=== PATIENT | male | born 1965 | race American Indian/Alaskan Native ===

== ENCOUNTER 2016-08-17 14:37 | Outpatient (CLI) | payer BC ==
[2016-08-17 16:15] LABS: Blood Urea Nitrogen 15 mg/dL (9-20)
--- NOTE | 2016-08-17 18:31 | Magnetic Resonance Report ---
MR scan of the cranium was performed with and without contrast. MR scan of the orbits with and without contrast Pulse sequences included: 1. T1 weighted sagittal and axial images without contrast and T1 axial and coronal images with contrast 2. T2 weighted axial and coronal images 3. FLAIR axial images 4. Diffusion-weighted axial images 5. Apparent diffusion coefficient images 6. T1 axial and coronal thin slices through the orbits with and without contrast Views of the posterior fossa showed a normal craniocervical junction. Cerebellar pontine angles were normal with normal seventh-eighth nerve complexes. Brainstem and cerebellum were normal. No meningeal enhancement was seen The ventricular system showed no dilatation or distortion. Images of the hemispheres showed no areas of increased or decreased signal. Sinuses, pituitary, flow voids in the [place], and basal ganglia were normal. There are no abnormal areas of enhancement with contrast. Orbits showed questionable enlargement of the left optic nerve but no enhancement. Muscles, globes, adnexa were normal. Impression: Normal MR scan of the cranium with and without contrast Questionably enlarged left optic nerve on the scan of the orbits. This study was compared to the outside study which showed an enlarged optic nerve and some questionable enhancement. The enlargement was less than earlier and the enhancement was not seen.
== END 2016-08-17 14:38 | disposition home or self-care (01) ==
LOC: MRI 14:37
PROVIDERS: ATTEND Specialist
DX: H46.9 Unspecified optic neuritis (principal); R27.0 Ataxia, unspecified
CPT/HCPCS: 36415; 70553; 82565; 84520; A9577